=== PATIENT | male | born 1955 | race Caucasian/White ===

== ENCOUNTER 2016-12-24 12:27 | Emergency (ER) | payer BC ==
[2016-12-24] MEDS ORDERED: NORCO 5-325 TA1 EACH PO (13:49)
== END 2016-12-24 14:25 ==
LOC: EDMED 12:27
DX: S93.402A Sprain of unspecified ligament of left ankle, initial encounter (principal); X50.1XXA Overexertion from prolonged static or awkward postures, initial encounter; Y92.019 Unspecified place in single-family (private) house as the place of occurrence of the external cause